=== PATIENT | female | born 1995 | race African-American/Black ===

== ENCOUNTER 2022-01-09 15:07 | Emergency (ER) | payer MEDICAID ==
[~2022-01-09] VITALS: Ht 157.5 cm; Wt 61.0 kg
[2022-01-09 17:23] LABS: BASOPHILS % 0.6 % (0.0-2.0); EOSINOPHILS % 0.7 % (0.0-5.0); HEMATOCRIT. 37.5 % (36.0-48.0); HEMOGLOBIN. 11.8 g/dL (12.0-16.0); LYMPHOCYTES % 55.9 % (20.0-50.0); MEAN CORPUSCULAR HEMOGLOBIN 24.9 pg (28.0-32.0); MEAN CORPUSCULAR VOLUME 79.2 fL (81.0-99.0); NEUTROPHILS % 35.8 % (40.0-76.0); PLATELET 494 x1000/uL (130-400); RED BLOOD CELL COUNT 4.74 mill/uL (4.2-5.4)
[2022-01-09 17:34] LABS: CHLORIDE 105 mEq/L (98-107)
[2022-01-09 17:49] LABS: HCG SCREEN NEGATIVE
[2022-01-09 17:50] LABS: PHOSPHORUS 4.3 mg/dL (2.5-4.9); T4 FREE 0.41 ng/dL (0.76-1.46)
[2022-01-09] MEDS ORDERED: MAGNESIUM OXIDE 400MG TABLET PO SCH (18:30)
[2022-01-09] MEDS ORDERED: POTASSIUM CHLORIDE 20MEQ TABLET SR PO ONE (18:30)
[2022-01-09 18:31] LABS: CLARITY URINE CLEAR (CLEAR); COLOR URINE YELLOW (YELLOW); KETONES URINE NEGATIVE (NEGATIVE); LEUKOCYTE ESTERASE URINE 1+ (NEGATIVE); NITRITE URINE NEGATIVE (NEGATIVE); OCCULT BLOOD URINE NEGATIVE (NEGATIVE); PH URINE 6.5 (4.5-8.0); PROTEIN URINE NEGATIVE (NEGATIVE); SPECIFIC GRAVITY URINE 1.011 (1.005-1.030); UROBILINOGEN URINE 0.2 E.U./dL (0.2-1.0)
[2022-01-09 18:40] LABS: *AMPHETAMINES SCREEN URINE NEGATIVE (NEGATIVE); *BARBITURATES SCREEN URINE NEGATIVE (NEGATIVE); *BENZODIAZEPINES SCREEN URINE NEGATIVE (NEGATIVE); *COCAINE SCREEN URINE NEGATIVE (NEGATIVE); METHADONE URINE SCREEN NEGATIVE (NEGATIVE); OPIATES URINE SCREEN NEGATIVE (NEGATIVE); PHENCYCLIDINE URINE SCREEN NEGATIVE (NEGATIVE)
[2022-01-09] MEDS ORDERED: CALA177S9 TP (18:56)
[2022-01-09] MEDS ORDERED: TC1U15 TP (18:56)
[2022-01-09 19:14] VITALS: BP 121/74
[2022-01-09 19:15] LABS: CANNABINOID URINE SCREEN PRESUMTIVE POSITIVE (NEGATIVE)
== END 2022-01-09 19:15 | disposition home or self-care (01) ==
LOC: ER 15:07
DX: L42 Pityriasis rosea (principal); E05.90 Thyrotoxicosis, unspecified without thyrotoxic crisis or storm; E87.6 Hypokalemia; J45.909 Unspecified asthma, uncomplicated; E03.9 Hypothyroidism, unspecified
CPT/HCPCS: 36415; 71045; 80053; 80305; 81003; 81025; 83735; 84100; 84439; 84443; 84481; 84703; 85025; 93005; 99285